=== PATIENT | male | born 1975 | race Caucasian/White ===

== ENCOUNTER 2024-05-12 11:31 | Emergency (ER) | payer MEDICAID ==
[~2024-05-12] VITALS: Ht 170.2 cm; Wt 79.4 kg
[2024-05-12] MEDS ORDERED: DEXAMETHASONE SOD PHOSPHATE 4 MG INJ ONE (12:30)
[2024-05-12] MEDS ORDERED: KETOROLAC TROMETHAMINE 30 MG INJ ONE (12:31)
[2024-05-12] MEDS: DEXAMETHASONE SOD PHOSPHATE 4 MG INJ IM ONE (12:38)
[2024-05-12] MEDS: KETOROLAC TROMETHAMINE 30 MG INJ IM ONE (12:38)
[2024-05-12] MEDS ORDERED: IBUP-1955 PO (12:38)
[2024-05-12] MEDS ORDERED: ACETAMINOPHEN 500 MG TABLET ONE (13:42)
[2024-05-12] MEDS ORDERED: TRAMADOL HCL 50 MG TABLET ONE (13:43)
[2024-05-12] MEDS: TRAMADOL HCL 50 MG TABLET PO ONE (13:46)
[2024-05-12] MEDS: ACETAMINOPHEN 500 MG TABLET PO ONE (13:46)
[2024-05-12 13:50] VITALS: BP 140/76; O2SAT 99
[2024-05-12] MEDS ORDERED: TRAM50TA2 PO (13:50)
== END 2024-05-12 13:51 | disposition home or self-care (01) ==
LOC: ER 11:31
DX: S29.012A Strain of muscle and tendon of back wall of thorax, initial encounter (principal); M45.9 Ankylosing spondylitis of unspecified sites in spine; Z88.1 Allergy status to other antibiotic agents; Z88.2 Allergy status to sulfonamides; W18.39XA Other fall on same level, initial encounter; Y93.89 Activity, other specified; Y92.89 Other specified places as the place of occurrence of the external cause; Y99.8 Other external cause status
CPT/HCPCS: 99284; 73020; 96372 ×2; J1100; J1885; A4606; A4663; A9150